=== PATIENT | male | born 1945 | race Caucasian/White ===

== ENCOUNTER 2016-06-27 23:26 | Emergency (ER) | payer MEDICARE ==
--- NOTE | ~2016-06-27 | ER ---
PATIENT'S NAME: HERNAN SHEPPARD [facility] AGE: 70 Y [address] ROOM: [place] [address] LOCATION: [facility] ADMIT DATE: 06/27/2016 ER/Outpatient Report DISCHARGE DATE: 06/28/2016 FAMILY PHYSICIAN: Hernan Tovar MD ATTENDING PHYSICIAN: Karen Banda Admission date and time are documented on the medical record. I saw the patient at 2350 hours. CHIEF COMPLAINT: Blood in the stool. HISTORY OF PRESENT ILLNESS: The patient is a 70-year-old male who presented to the emergency room for evaluation. The patient had a bowel movement around 1900 this evening and little bit later he had another bowel movement and the water turned red. Does not have any abdominal pain out of the norm. No nausea, vomiting, diarrhea, or urinary complaints. Seemed to overeat at noon today, according the him. Does have a history of chronic pancreatitis with flareups. He has had multiple colonoscopies. No chest pain, shortness of breath, headache, eyes, ears, nose, throat, neck, or spine pain. No fall or trauma. No recent colds, coughs, flus, fever, chills, or sweats. No lightheadedness, dizziness, syncope, or near syncope. No back pain. No joint or muscle swelling, redness, or pain. No skin eruptions or rash. No history of neuro changes, psych issues, or endocrine problems. HOME MEDICATIONS: See attached medication list. ALLERGIES: MORPHINE, DOXYCYCLINE. SOCIAL HISTORY: The patient smokes a pack of cigarettes per day, nondrinker. SIGNIFICANT PAST MEDICAL HISTORY: Hypertension, gastroesophageal reflux, small-bowel obstruction, colon volvulus, chronic pancreatitis, and tobacco abuse. OPERATIONS: Right colectomy, secondary to a volvulus, exploratory laparotomy with lysis of adhesions, back surgery, and colonoscopy. REVIEW OF SYSTEMS: All systems reviewed by me are negative with the exception of those discussed PATIENT'S NAME: HERNAN SHEPPARD [facility] AGE: 70 Y [address] ROOM: [place] [address] LOCATION: [facility] ADMIT DATE: 06/27/2016 ER/Outpatient Report DISCHARGE DATE: 06/28/2016 FAMILY PHYSICIAN: Hernan Tovar MD ATTENDING PHYSICIAN: Karen Banda in the history of the present illness. PHYSICAL EXAMINATION: VITAL SIGNS: Temperature 98.7, tympanic, pulse 74, respirations 16, blood pressure 183/95, and O2 sat on room air is 99%. HEAD: Normocephalic. EYES, EARS, NOSE, THROAT: Clear. Mucous membranes moist. NECK: Negative. SPINE: Negative. LUNGS: Clear. Good airflow. No rales, rhonchi, or wheezes. HEART: Regular. Pulses are palpable. ABDOMEN: Soft, nondistended, nontender. Active bowel tones. No organomegaly or abnormal mass palpable. No CVA tenderness. RECTAL: No masses palpable. Hemoccult positive. EXTREMITIES: Intact. NEUROVASCULAR: Intact. SKIN: Clear. No skin eruptions or rash. LABORATORY DATA: White count was 8300, 65 segs, 22 lymphs, 8 monos, 5 eos, 1 baso, hemoglobin is 11.7, hematocrit 35.8, platelet count was 163,000. PTT was 27, pro-time is 10.5 with INR 1.0. CMS was normal except for an elevated glucose 138, elevated alk phos 142, amylase was elevated at 96, lipase was elevated at 470 with a high normal 393. Occult blood was positive. IMPRESSION: 1. Bloody stools with occult blood positive, rectal exam negative. 2. Slightly elevated amylase and lipase with a history of chronic pancreatitis, no change in his abdominal pain. 3. Hypertension. 4. Gastroesophageal reflux. 5. Tobacco abuse. PLAN: The patient dismissed home. Observation. Activity as tolerated. Continue present home medications and care. Fluids and diet as tolerated. Monitor rectal bleeding. Watch diet. May need a colonoscopy scheduled. Follow up with personal physician in 2 to 3 days. Return to the emergency room sooner if needed. Discussion ensued with the patient concerning my findings and recommendations, he understands. KAREN BANDA MD PATIENT'S NAME: HERNAN SHEPPARD [facility] AGE: 70 Y [address] ROOM: [place] [address] LOCATION: [facility] ADMIT DATE: 06/27/2016 ER/Outpatient Report DISCHARGE DATE: 06/28/2016 FAMILY PHYSICIAN: Hernan Tovar MD ATTENDING PHYSICIAN: Karen Banda SDS/modl /[id number] d: 06/28/16 0146 t: 06/28/16 1811, OUTPATIENT REPORT
[2016-06-28 00:17] LABS: BASOPHIL # 0.1 K/uL (0.0-0.2); BASOPHIL % 0.8 %; EOSINOPHIL # 0.4 K/uL (0.0-0.5); EOSINOPHIL % 5.1 %; HEMATOCRIT 35.8 % (37.0-53.0); HEMOGLOBIN 11.7 g/dL (11.0-16.0); IMMATURE GRANULOCYTE % 0.2 %; LYMPHOCYTE # 1.8 K/uL (0.8-4.0); LYMPHOCYTE % 21.7 %; MCH 31.7 pg (27.0-34.0); MCHC 32.7 gm/dL (32.0-36.5); MONOCYTE # 0.6 K/uL (0.0-1.0); MONOCYTE % 7.6 %; MPV 9.9 fl (9.4-12.4); NEUTROPHIL # (ANC) 5.3 K/uL (1.4-9.0); NEUTROPHIL % 64.6 %; NRBC % 0 /100WBC (0-0.00); PLATELET COUNT 163 K/uL (150-450); RBC 3.69 M/uL (3.50-5.50); RDW-CV 13.2 % (11.9-14.6); WBC 8.3 K/uL (4.0-11.0)
[2016-06-28 00:26] LABS: PROTIME 10.5 SECONDS (9.8-11.4); PTT 27 SECONDS (25-32)
[2016-06-28 00:32] LABS: ALBUMIN 3.4 gm/dL (3.5-5.0); ALK PHOS 142 IU/L (33-138); ALT 17 IU/L (12-78); ANION GAP 11.8 (10.0-19.0); AST 15 IU/L (10-40); BLOOD UREA NITROGEN 11 mg/dL (6-24); CALCIUM 8.5 mg/dL (8.5-10.5); CHLORIDE 107 mMol/L (96-110); CO2 26 mMol/L (22-32); CREATININE 0.8 mg/dL (0.6-1.3); ESTIMATED GFR (MDRD EQUATION) > 60; POTASSIUM 3.8 mMol/L (3.7-5.1); SODIUM 141 mMol/L (135-145); TOTAL BILIRUBIN 0.3 mg/dL (0.0-1.5); TOTAL PROTEIN 7.6 g/dL (6.0-8.4)
[2016-06-29] MEDS ORDERED: ZESTRIL40 MG PO (13:40)
[2016-06-29] MEDS ORDERED: GABAPENTIN300 MG PO (13:42)
[2016-06-29] MEDS ORDERED: NEURONTIN300 MG PO (13:42)
[2016-06-29] MEDS ORDERED: ASPIRIN LO-DOSE81 MG PO (13:42)
[2016-06-29] MEDS ORDERED: CREON DR 24,001 EACH PO ×2 (13:43→13:44)
[2016-06-29] MEDS ORDERED: MULTI VITAMIN1 EACH PO (13:44)
== END 2016-06-28 01:07 | disposition disaster alternative care site (69) ==
LOC: GMED 23:26
PROVIDERS: Emergency Medicine
DX: K92.1 Melena (principal); I10 Essential (primary) hypertension; K21.9 Gastro-esophageal reflux disease without esophagitis; R74.8 Abnormal levels of other serum enzymes; K56.60 Unspecified intestinal obstruction; K56.2 Volvulus; F17.210 Nicotine dependence, cigarettes, uncomplicated; Z88.5 Allergy status to narcotic agent; Z88.8 Allergy status to other drugs, medicaments and biological substances; Z98.890 Other specified postprocedural states; Z79.899 Other long term (current) drug therapy; Z87.19 Personal history of other diseases of the digestive system

== ENCOUNTER 2016-06-30 08:11 | Observation (INO) | payer MEDICARE ==
[~2016-06-30] VITALS: Ht 177.8 cm; Wt 60.0 kg
--- NOTE | ~2016-06-30 | ER ---
PATIENT'S NAME: HERNAN SHEPPARD [facility] AGE: 70 Y [address] ROOM: [place] [address] [place]ATION: [facility] [place] ADMIT DATE: 06/30/2016 ER/Outpatient Report DISCHARGE DATE: FAMILY PHYSICIAN: Hernan Tovar MD ATTENDING PHYSICIAN: Hernan Tovar CHIEF COMPLAINT: Weakness. HISTORY OF PRESENT ILLNESS: The patient presents by ambulance from home. He had been seen several times over the last few days. He had some GI bleeding recently and has a history of chronic pancreatitis. He started a colonoscopy prep yesterday and this morning states that he just feels extremely poor. He does note that his last bowel movement was clear with no blood in it. He denies any fevers or chills and has new no new body aches or pains. Just his usual abdominal discomfort and slight bloating. No other acute issues per him. The patient's primary provider is Dr. Hernan Tovar from [place], who did call ahead regarding this patient. No other acute findings or issues on the patient's history. PAST MEDICAL HISTORY: Documented on the record and reviewed by me. SOCIAL HISTORY: Documented on the record and reviewed by me. MEDICATIONS: Documented on the record and reviewed by me. ALLERGIES: DOCUMENTED ON THE RECORD AND REVIEWED BY ME. REVIEW OF SYSTEMS: All systems were reviewed and negative except as noted in the HPI. PHYSICAL EXAMINATION: VITAL SIGNS: Blood pressure 100/57, pulse 77, respiratory rate is 20, temperature 96.7, SpO2 is 98% on room air. Pain 0/10. GENERAL: Age-appropriate male, in no obvious pain or distress, resting comfortably on exam table. NEUROLOGIC: Awake and alert. GCS is 15. The patient is diffusely weak at 4/10, but no asymmetry on exam. No obvious neurologic abnormalities. HEENT: Normocephalic, atraumatic. Eyes are PERRL. Oropharynx is clear. NECK: Supple. Trachea is midline. HEART: Regular rate and rhythm with no obvious murmurs. PATIENT'S NAME: HERNAN SHEPPARD [facility] AGE: 70 Y [address] ROOM: [place] [address] LOCATION: [facility] [place] ADMIT DATE: 06/30/2016 ER/Outpatient Report DISCHARGE DATE: FAMILY PHYSICIAN: Hernan Tovar MD ATTENDING PHYSICIAN: Hernan Tovar LUNGS: Clear to auscultation bilaterally. No rhonchi, wheezes, or rales. ABDOMEN: Soft, nondistended, no rebound, no guarding but slight tenderness in the epigastric region which he states is baseline. BACK: Normal to inspection and palpation. EXTREMITIES: Warm and well perfused. SKIN: Skin appears to be grossly clean, dry and intact with no obvious rashes. LABORATORY DATA AND X-RAYS: No imaging was obtained for this gentleman. Labs are notable for the following: Serum lactate of 2.7 which was obtained after 2 L of fluid. CMS with an anion gap of 15, BUN of 21, creatinine 1.6 up from 0.9 yesterday, and a GFR 43 down from greater than 60 yesterday. LFTs without any significant abnormality and no elevation of bilirubin outside of normal threshold. Free T4 is 1.3. WBC is 15.1, up from 7.5, hemoglobin is 13.4, up from 11 and platelets are 238, up from the low 100. INR is 1. TSH is 2.25. IMPRESSION: 1. Acute kidney injury with azotemia. 2. Moderate hypovolemia. 3. Hemo concentration. 4. Generalized weakness. 5. Recent gastrointestinal bleeding. Need for upper and lower endoscopy. EMERGENCY DEPARTMENT COURSE: The patient was seen and evaluated as above. He was given 1 L of normal saline and then 1 L of D5 half-normal saline and then started on maintenance fluids for volume resuscitation. The lactate was drawn after his labs came back unusual. This was after approximately 1 1/2 to 2 L of volume resuscitation. This explains his anion gap. He will need to be admitted for observation and volume expansion. He was evaluated by Anesthesia and is amenable and appropriate for continuation of his endoscopy. He remained otherwise asymptomatic in the emergency department. I discussed the case with Dr. Tovar, his primary care provider and Dr. Tovar will admit him to the hospital. He is cleared for endoscopy. All questions were answered. The patient was taken to the endoscopy suite for further evaluation and treatment. SOWMYA MC MD /erasmo PATIENT'S NAME: HERNAN SHEPPARD [facility] AGE: 70 Y [address] ROOM: [address] [address] LOCATION: [facility] [place] ADMIT DATE: 06/30/2016 ER/Outpatient Report DISCHARGE DATE: FAMILY PHYSICIAN: Hernan Tovar MD ATTENDING PHYSICIAN: Hernan Tovar /[id number] d: 06/30/16 2315 t: 07/01/16 1012, OUTPATIENT REPORT
[~2016-06-30 08:11] MED LIST: ASPIRIN LO-DOSE81 MG PO; CREON DR 24,001 EACH PO; GABAPENTIN300 MG PO; MULTI VITAMIN1 EACH PO; NEURONTIN300 MG PO; ZESTRIL40 MG PO
[2016-06-30 08:31] LABS: BASOPHIL # 0.1 K/uL (0.0-0.2); BASOPHIL % 0.5 %; EOSINOPHIL # 0.1 K/uL (0.0-0.5); EOSINOPHIL % 0.3 %; HEMATOCRIT 41.7 % (37.0-53.0); HEMOGLOBIN 13.4 g/dL (11.0-16.0); IMMATURE GRANULOCYTE # 0.1 K/uL (0.0-0.3); IMMATURE GRANULOCYTE % 0.5 %; LYMPHOCYTE # 1.3 K/uL (0.8-4.0); LYMPHOCYTE % 8.9 %; MCHC 32.1 gm/dL (32.0-36.5); MCV 96.5 fl (83.0-98.0); MONOCYTE # 0.5 K/uL (0.0-1.0); MONOCYTE % 3.4 %; MPV 10.1 fl (9.4-12.4); NEUTROPHIL # (ANC) 13.1 K/uL (1.4-9.0); NEUTROPHIL % 86.4 %; NRBC % 0 /100WBC (0-0.00); RBC 4.32 M/uL (3.50-5.50); RDW-CV 13.6 % (11.9-14.6); WBC 15.1 K/uL (4.0-11.0)
[2016-06-30 08:32] LABS: PLATELET COUNT 238 K/uL (150-450)
[2016-06-30 08:40] LABS: INR - (THERAPEUTIC) 0.98 (0.92-1.07); PROTIME 10.3 SECONDS (9.8-11.4); PTT 24 SECONDS (25-32)
[2016-06-30 08:54] LABS: ALBUMIN 4.5 gm/dL (3.5-5.0); ANION GAP 20.1 (10.0-19.0); CALCIUM 9.9 mg/dL (8.5-10.5); CREATININE 1.6 mg/dL (0.6-1.3); POTASSIUM 5.1 mMol/L (3.7-5.1); TOTAL BILIRUBIN 0.8 mg/dL (0.0-1.5); TOTAL PROTEIN 9.4 g/dL (6.0-8.4)
--- NOTE | 2016-06-30 10:20 | NUR ---
PT is 70 y/o male admit for bloody stools for Dr.JD Tovar. Allergy to morphine and doxycycline. REd bracelet on. Pt states he was scheduled for a colonoscopy this am and finished his prep as directed yesterday and then at 3 am this am,but when he got up he felt extremely weak and almost fell getting out of shower this am. Hx MANZANITA,N/T right foot,seasonal allergies,CAD,CO??,htn, arthritis,chronic pancreatitis,diverticulitis w 18 inches removed,gerd, basal cell removed bilat ears. Pt alert and oriented x3.
[2016-06-30] MEDS ORDERED: PRILOSEC OTC20 MG PO (17:29)
--- NOTE | 2016-06-30 17:48 | NUR ---
D: ORDERS RECEIVED FOR THE PATIENT TO BE DISCHARGED THIS EVENING TO HOME. I: DISMISSAL INSTRUCTIONS WERE PREPARED AND REVIEWED WITH THE PATIENT VIRTUALLY. THE FOLLOWING INFORMATION WAS DISCUSSED WITH THE PATIENT INCLUDING [employer]RAMES TEACHING SHEETS PROVIDED: DEHYDRATION, OMEPRAZOLE, ESOPHAGEAL ULCERS, UNDERSTANDING GASTRIC ULCERS, AND PREVENTING DVT. REVIEWED WHEN TO FOLLOW UP WITH DR. ROMERO AND HOW TO TAKE HIS OMEPRAZOLE TOMORROW MORNING AND UNTIL SEEING DR. ROMERO. R: THE PATIENT VERBALIZED UNDERSTANDING OF THE DISMISSAL EDUCATION AT THE TIME OF TEACHING WITH NO FURTHER QUESTIONS. P: THE ABOVE INFORMATION WAS SHARED WITH THE PRIMARY NURSE AND THE CHARGE NURSE THAT THE PATIENT DISMISSAL EDUCATION WAS COMPLETED. THE PATIENT IS READY FOR DISCHARGE TO THE FRONT DOOR VIA WHEEL CHAIR BY NURSING STAFF.
== END 2016-06-30 18:30 | disposition disaster alternative care site (69) ==
LOC: GMED 08:11 → GMSU 09:32
PROVIDERS: Emergency Medicine; ADMIT Family Medicine
PROC: 0DB68ZZ Excision of Stomach, Via Natural or Artificial Opening Endoscopic (ICD-10-PCS; principal; 2016-06-30)
PROC: 0DJD8ZZ Inspection of Lower Intestinal Tract, Via Natural or Artificial Opening Endoscopic (ICD-10-PCS; 2016-06-30)
DX: K25.9 Gastric ulcer, unspecified as acute or chronic, without hemorrhage or perforation (principal); K44.9 Diaphragmatic hernia without obstruction or gangrene; K57.30 Diverticulosis of large intestine without perforation or abscess without bleeding; K62.5 Hemorrhage of anus and rectum; K64.1 Second degree hemorrhoids; F17.210 Nicotine dependence, cigarettes, uncomplicated; K21.9 Gastro-esophageal reflux disease without esophagitis; I10 Essential (primary) hypertension; N17.9 Acute kidney failure, unspecified; E86.1 Hypovolemia; Z88.1 Allergy status to other antibiotic agents; Z88.5 Allergy status to narcotic agent; Z90.49 Acquired absence of other specified parts of digestive tract; Z98.890 Other specified postprocedural states
CPT/HCPCS: G0378; J7030; J7042

== ENCOUNTER → 2016-07-02 | Outpatient (CLI) | payer MEDICARE ==
[~2016-07-02] MED LIST changes: +PRILOSEC OTC20 MG PO
--- NOTE | ~2016-07-02 | ENPV ---
Carotid Duplex Study Demographics Patient Name HERNAN SHEPPARD Date of Study 07/02/2016 Patient Number [id number] Gender Male Date of 1945 Age 70 Visit Number [id number] Height Weight Number Room Number BSA BMI Referring Guy Carnes MD Interpreting Filipe Su MD Physician Physician Physician Ordering Guy Carnes Play Writer Physician Wireless Operator Que [facility] Conclusions Summary The right internal carotid artery has mild, 1-39%, plaque and stenosis. The left internal carotid artery has mild, 1-39%, plaque and stenosis. The bilateral vertebral arteries are patent and antegrade. The bilateral subclavian arteries are patent and biphasic. Procedure Type of Study: Cerebral:Carotid, Carotid Doppler Bilateral. Indications for Study:Carotid Bruit. Appropriate Use Criteria:9 Blood Pressure:Right arm 114/56 mmHg.Left arm 110/55 mmHg. Patient Status:Routine. Study Location:Vascular Lab. Technical Quality:Adequate visualization. Velocities are measured in cm/s ; Diameters are measured in cm Carotid Right Measurements Carotid Left Measurements + +--------+--------+ + + + +--------+ --------+ + + !Location !PSV !EDV !Angle !%Stenosis ! !Location !PSV ! EDV !Angle !%Stenosis ! + +--------+--------+ + + + +--------+ --------+ + + !Prox CCA !80 !17 !60 ! ! !Prox CCA !79 ! 18 !60 ! ! + +--------+--------+ + + + +--------+ --------+ + + !Dist CCA !98 !29 !60 ! ! !Dist CCA !91 ! 27 !60 ! ! + +--------+--------+ + + + +--------+ --------+ + + !Prox ICA !79 !26 !60 ! ! !Prox ICA !83 ! 33 !60 ! ! + +--------+--------+ + + + +--------+ --------+ + + !Dist ICA !88 !27 !54 ! ! !Dist ICA !86 ! 32 !60 ! ! + +--------+--------+ + + + +--------+ --------+ + + !Prox ECA !130 ! !60 ! ! !Prox ECA !241 ! !52 ! ! + +--------+--------+ + + + +--------+ --------+ + + !Vertebral !55 ! !60 ! ! !Vertebral !54 ! !60 ! ! + +--------+--------+ + + + +--------+ --------+ + + !Subclavian !80 ! !60 ! ! !Subclavian !61 ! !54 ! ! + +--------+--------+ + + + +--------+ --------+ + + - Add'l Measurements:ICAPSV/CCAPSV 1.09.ICAEDV/CCAEDV 1.57. - Add'l Measurements:ICAPS V/CCAPSV 1.08.ICAEDV/CCAEDV 1.87. Signature dtt: LILI ROBLEDO: 07/02/16 1312 Physician Self Edit
== END | disposition disaster alternative care site (69) ==
LOC: GCAR 12:58
DX: R09.89 Other specified symptoms and signs involving the circulatory and respiratory systems (principal); I65.23 Occlusion and stenosis of bilateral carotid arteries

== ENCOUNTER → 2016-08-19 | Outpatient (CLI) | payer MEDICARE ==
[2016-08-19 12:39] LABS: BASOPHIL # 0.1 K/uL (0.0-0.2); BASOPHIL % 1.1 %; EOSINOPHIL # 0.4 K/uL (0.0-0.5); EOSINOPHIL % 4.1 %; HEMATOCRIT 37.2 % (37.0-53.0); HEMOGLOBIN 12.2 g/dL (11.0-16.0); IMMATURE GRANULOCYTE % 0.1 %; LYMPHOCYTE # 1.7 K/uL (0.8-4.0); LYMPHOCYTE % 20.5 %; MCH 31.7 pg (27.0-34.0); MCHC 32.8 gm/dL (32.0-36.5); MCV 96.6 fl (83.0-98.0); MONOCYTE # 0.6 K/uL (0.0-1.0); MONOCYTE % 6.5 %; MPV 9.8 fl (9.4-12.4); NEUTROPHIL # (ANC) 5.7 K/uL (1.4-9.0); NEUTROPHIL % 67.7 %; NRBC % 0 /100WBC (0-0.00); PLATELET COUNT 203 K/uL (150-450); RBC 3.85 M/uL (3.50-5.50); WBC 8.5 K/uL (4.0-11.0)
== END | disposition disaster alternative care site (69) ==
LOC: GLAB 11:16
PROVIDERS: Family Medicine
DX: D62 Acute posthemorrhagic anemia (principal)